=== PATIENT | female | born 1960 | race Caucasian/White ===

== ENCOUNTER 2017-06-20 07:10 | Emergency (ER) | payer BC ==
[2017-06-20 07:27] VITALS: BP 132/87
[2017-06-20] MEDS ORDERED: predniSONE TAB* 20 MG PO ONE (07:44)
--- NOTE | 2017-06-20 07:45 | UC ---
Skin Complaint HPI - HPI Summary HPI Summary: spreading pruritic rash x days - History of Current Complaint Chief Complaint: UCRash Time Seen by Provider: 06/20/17 07:35 Stated Complaint: SKIN COMPLAINT Hx Obtained From: Patient Onset/Duration: Gradual Onset, Lasting Days Timing: Constant Onset Severity: Mild Current Severity: Moderate Pain Intensity: 0 Pain Scale Used: 0-10 Numeric Location: Other - scatterred Character: Swelling, Pruritus, Redness, Raised Aggravating: Nothing Alleviating: Nothing Associated Signs & Symptoms: Positive: Rash - Allergy/Home Medications Allergies/Adverse Reactions: Allergies Allergy/AdvReac Type Severity Reaction Status Date / Time Meperidine [From Demerol HCl] Allergy Hives Verified 06/20/17 07:20 Penicillins Allergy Hives Verified 06/20/17 07:20 Home Medications: Home Medications Albuterol HFA INHALER* [Ventolin HFA Inhaler*] 2 puff INH Q6H PRN 06/20/17 [ History Confirmed 06/20/17] Aspirin [Aspirin Enteric Coated 81 MG] 81 mg PO DAILY 06/20/17 [History Confirmed 06/20/17] Cetirizine* [ZyrTEC 10 MG TAB*] 10 mg PO DAILY 06/20/17 [History Confirmed 06/20] Fluticasone-Salmeterol 500-50* [Advair Diskus 500-50*] 2 puff INH BID 06/20/17 [ History Confirmed 06/20/17] Furosemide TAB* [Lasix TAB*] 20 mg PO DAILY PRN 06/20/17 [History Confirmed ] Ibuprofen TAB* [Advil TAB*] 400 mg PO Q6H PRN 06/20/17 [History Confirmed ] Lisinopril TAB* [Prinivil TAB*] 10 mg PO DAILY 06/20/17 [History Confirmed 06/20] Naproxen Sodium [Naproxen Sodium 220 mg] 440 mg PO QAM 06/20/17 [History Confirmed 06/20/17] Simvastatin TAB(NF) [Zocor(NF)] 20 - 40 mg PO SEE INSTRUCTIONS 06/20/17 [ History Confirmed 06/20/17] metFORMIN* [Glucophage 1000 MG TAB *] 1,000 mg PO BID 06/20/17 [History Confirmed 06/20/17] Review of Systems Constitutional: Negative Skin: Rash Eyes: Negative ENT: Negative Respiratory: Negative Cardiovascular: Negative Gastrointestinal: Negative Genitourinary: Negative Motor: Negative Neurovascular: Negative Musculoskeletal: Negative Neurological: Negative Psychological: Negative All Other Systems Reviewed And Are Negative: Yes PMH/Surg Hx/FS Hx/Imm Hx Endocrine History: Diabetes Cardiovascular History: Hypertension, Other Other Cardiovascular History: Aortic stenosis - Surgical History Surgical History: None - Family History Known Family History: Positive: Hypertension - Social History Alcohol Use: None Substance Use Type: None Smoking Status (MU): Heavy Every Day Tobacco Smoker Type: Cigarettes Amount Used/How Often: 1/2 PPD Length of Time of Smoking/Using Tobacco: Since Age 18 Household Exposure Type: Cigarettes Physical Exam Triage Information Reviewed: Yes Appearance: Well-Appearing, No Pain Distress, Well-Nourished Vital Signs: Initial Vital Signs Temp 97.8 F 06/20/17 07:17 Pulse 78 06/20/17 07:17 Resp 16 06/20/17 07:17 BP 132/87 06/20/17 07:17 Pulse Ox 98 06/20/17 07:17 Vital Signs Reviewed: Yes Eyes: Positive: Conjunctiva Clear ENT: Positive: Hearing grossly normal. Negative: Nasal congestion, Nasal drainage, Trismus, Muffled/hoarse voice Neck: Positive: Supple, Nontender, No Lymphadenopathy Respiratory: Positive: Lungs clear, Normal breath sounds, No respiratory distress, No accessory muscle use Cardiovascular: Positive: RRR, No Murmur Musculoskeletal: Positive: ROM Intact, No Edema Neurological: Positive: Alert Psychological Exam: Normal Course/Dx - Diagnoses Provider Diagnoses: acute rash-suspect contact dermatitis Discharge - Discharge Plan Condition: Stable Disposition: HOME Prescriptions: Prednisone [Deltasone] 20 - 40 mg PO DAILY #13 tab Patient Education Materials: Contact Dermatitis (ED) Additional Instructions: benadryl OTC 25-50 mg 4x day as needed for itching sarna anti itch lotion cool compresses with epsom salts recheck next week if not improving watch your blood sugars Images Front/Back of Body, Lg ([place]): 1 - rash c/w contact derm 2 - rash c/w contact derm 3 - scatterred rash c/w contact derm 4 - scatterred rash c/w contact derm
[2017-06-20] MEDS ORDERED: predniSONE TAB* 20 MG ONE (07:47)
== END 2017-06-20 07:57 | disposition home or self-care (01) ==
LOC: UCCORT 07:10
DX: R21 Rash and other nonspecific skin eruption (principal); F17.200 Nicotine dependence, unspecified, uncomplicated; E11.9 Type 2 diabetes mellitus without complications; I10 Essential (primary) hypertension; Z79.82 Long term (current) use of aspirin; Z88.0 Allergy status to penicillin
CPT/HCPCS: 99202; G0463; J7512